=== PATIENT | female | born 1975 ===

== ENCOUNTER 2020-10-30 17:20 | Emergency (ER) | payer BC ==
--- NOTE | 2020-10-30 17:32 | EDM.PDOC ---
<WallaceKezia V - Last Filed: 10/30/20 21:02> ED HPI GENERAL MEDICAL PROBLEM - General Chief Complaint: Cardiovascular Problem Stated Complaint: BLOOD PRESSURE ISSUE Time Seen by Provider: 10/30/20 17:34 - Related Data Allergies Allergy/AdvReac Type Severity Reaction Status Date / Time No Known Allergies Allergy Verified 10/30/20 17:31 Home Meds: Home Meds Terazosin [Hytrin] 2 mg PO DAILY #30 cap 10/30/20 [Rx] Course - Re-Assessments/Exams Free Text/Narrative Re-Assessment/Exam: 10/30/20 21:02 Patient's blood pressure has been steadily under 160 systolically for a few cycles at this time we will go ahead and discharge her home with the above plan from Dr. Roth. Departure - Departure Time of Disposition: 21:02 Disposition: Home, Self-Care 01 Clinical Impression: Uncontrolled hypertension, stage 1 Prescriptions: Terazosin [Hytrin] 2 mg PO DAILY #30 cap Instructions: Hypertension, Adult, [id number], Managing Your Hypertension Referrals: Nat Borja PA-C [Primary Care Provider] - Forms: ED Department Discharge Additional Instructions: You were evaluated today for your elevated blood pressure readings. We were able to get your blood pressure down in the ER, to under 160 systolically. You will be started on 3 different oral blood pressure medications, amlodipine, Terazosin, and losartan, these all work on different pathways to help control your blood pressure, please take as directed unless told otherwise by your [place] care provider. Recommend you take your blood pressure 2 times a day, preferably when you are in a calm state, for roughly 5 minutes and record these numbers in a journal, to talk them over with Nat Borja, to see if she needs to do any sort of adjustments in your medications. Please return to the ER at any time if your symptoms change or worsen. <Dave Roth - Last Filed: 11/02/20 07:12> ED HPI GENERAL MEDICAL PROBLEM - General Source of Information: Reports: Patient, Provider History Limitations: Reports: No Limitations - History of Present Illness INITIAL COMMENTS - FREE TEXT/NARRATIVE: 44-year-old female of -[place] descent presents to the ED at the request of her primary care provider Nat Borja whom she is seen in the office this afternoon. Patient was diagnosed with significant hypertension with a systolic well over 210 and a diastolic over 110. ECG done by provider revealed evidence of significant left ventricular hypertrophy pattern suggesting this is a chronic problem. She was sent to the ED for evaluation of blood pressure and to achieve blood pressure control. Her provider has started her on losartan 100 mg daily and amlodipine 10 mg once daily which the patient will get later today. Labs were drawn as well. They are not yet available to me. Chest x-ray was not yet done. Blood pressure at the time of evaluation in the emergency room was 233/123 with a heart rate of 72.. There is ST segment elevation in lead V5 on the monitor and ECG will therefore be repeated. The ecg I had read for Nat Borja earlier revealed evidence of severe left ventricular perjury pattern with early repolarization pattern in V1 to V4. There is associated left atrial hypertrophy. EEG will be repeated. Patient symptom is that of a diffuse occipital throbbing pulsating headache. Feels like her eyes are little bloodshot as well. Intermittent mild nausea with no vomiting. Onset: Gradual, Unknown/Unsure (He is known that she has had high blood pressure for several years but has not been followed up by physicians very regularly.) Duration: Chronic, Getting Worse Location: Reports: Other (Today primarily is affected with the pressure in the occipital aspect of her head.) Quality: Reports: Ache, Throbbing, Other Severity: Moderate (Pulsating headache.) Improves with: Reports: None Worsens with: Reports: None Context: Denies: Activity, Exercise, Lifting, Sick Contact, Other Associated Symptoms: Reports: Chest Pain, Headaches. Denies: No Other Symptoms (Does have some mild retrosternal chest pressure discomfort.), Confusion, Cough, cough w sputum, Diaphoresis, Fever/Chills, Loss of Appetite, Malaise, Nausea/Vomiting, Rash, Seizure, Shortness of Breath, Syncope, Weakness, Other Chest Pain Score (Numeric/FACES): 5 Past Medical History Cardiovascular History: Reports: Hypertension Social & Family History - Living Situation & Occupation Living situation: Reports: Single Occupation: Employed Social History Comment: [facility] ED ROS GENERAL - Review of Systems Review Of Systems: See Below Constitutional: Reports: Fatigue, Decreased Appetite, Weight Gain (She stop smoking a little over a year ago. She believes she is gained about 20 pounds). Denies: Fever, Chills, Weight Loss HEENT: Reports: Glasses (Tickly noted today. Reading.) Respiratory: Reports: Shortness of Breath (None). Denies: Wheezing, Pleuritic Chest Pain ( exertion at times.), Cough, Sputum Cardiovascular: Reports: Chest Pain, Blood Pressure Problem (Mild central chest discomfort intermittent today.), Dyspnea on Exertion. Denies: Claudication, Edema, Lightheadedness, Orthopnea ( Known hypertension for at least 5 years.), Palpitations Endocrine: Reports: Fatigue (On occasion.) GI/Abdominal: Reports: No Symptoms : Reports: No Symptoms Musculoskeletal: Reports: Neck Pain, Back Pain, Joint Pain (No problems with neck pain low back pain knees and hips at times.) Skin: Reports: No Symptoms Neurological: Reports: Headache. Denies: Numbness, Pre-Existing Deficit, Seizure, Syncope, Tingling (Been on occipital headaches.), Tremors, Trouble Speaking, Difficulty Walking, Weakness, Change in Speech, Gait Disturbance Psychiatric: Reports: No Symptoms Hematologic/Lymphatic: Reports: No Symptoms Immunologic: Reports: No Symptoms ED EXAM, GENERAL - Physical Exam Exam: See Below Exam Limited By: No Limitations General Appearance: Alert, WD/WN, No Apparent Distress, Other (Temperature is 36.2 degrees. Heart rate was 80 and sinus respiratory is 18 BP elevated at 233/123. O2 sats 99% room air) Eye Exam: Bilateral Eye: A-V [place] (Noted bilaterally), Normal Inspection, PERRL (No scleral icterus or blepharal pallor) Throat/Mouth: Normal Inspection, Normal Lips, Normal Teeth, Normal Oropharynx Head: Atraumatic, Normocephalic Neck: Normal Inspection, Supple, Non-Tender, Full Range of Motion. No: Lymphadenopathy (L), Lymphadenopathy (R) Respiratory/Chest: No Respiratory Distress, Lungs Clear, Normal Breath Sounds, No Accessory Muscle Use Cardiovascular: Normal Peripheral Pulses, Regular Rate, Rhythm, No Edema, No Gallop, No Murmur, No Rub Peripheral Pulses: 2+: Carotid (L), Carotid (R), Posterior Tibial (L), Posterior Tibial (R), Dorsalis Pedis (L), Dorsalis Pedis (R) GI/Abdominal: Normal Bowel Sounds, Soft, Non-Tender, No Organomegaly, No Mass, Pelvis Stable, Other (Naseem obese.) Back Exam: Normal Inspection, Full Range of Motion. No: CVA Tenderness (L), CVA Tenderness (R) Extremities: Normal Inspection, Normal Range of Motion, Non-Tender, No Pedal Edema Neurological: Alert, Oriented, CN II-XII Intact, Normal Cognition Psychiatric: Normal Affect, Normal Mood Skin Exam: Warm, Dry, Intact, Normal Color, No Rash #1 Interpretation EKG Date: 10/30/20 Time: 17:43 Rhythm: NSR Rate (Beats/Min): 73 [place]: Normal P-Wave: Enlarged (Left atrial hypertrophy pattern) QRS: Other (Severe evidence of left bundle branch block pattern.) ST-T: Other (Diffuse early repolarization pattern particular noted V1 to V6. T wave is slightly inverted in aVL nonspecific finding) EKG Interpretation Comments: Abnormal ECG Course - Vital Signs Last Recorded V/S: Last Vital Signs Temp 36.2 C 10/30/20 17:28 Pulse 80 10/30/20 17:28 Resp 18 10/30/20 17:28 BP 158/87 H 10/30/20 21:15 Pulse Ox 99 10/30/20 17:28 - Orders/Labs/Meds Labs: Laboratory Tests 10/30/20 10/30/20 10/30/20 Range/Units 17:10 17:10 19:10 Magnesium 2.2 (1.8-2.4) mg/dl NT-Pro-B Natriuret Pep 98 (0-125) pg/mL Urine Color Yellow (Yellow) Urine Appearance Clear (Clear) Urine pH 6.5 (5.0-8.0) Ur Specific [place] 1.020 (1.005-1.030) Urine Protein Negative (Negative) Urine Glucose (UA) Negative (Negative) Urine Ketones Negative (Negative) Urine Occult Blood Negative (Negative) Urine Nitrite Negative (Negative) Urine Bilirubin Negative (Negative) Urine Urobilinogen 0.2 (0.2-1.0) Ur Leukocyte Esterase Negative (Negative) Urine RBC 0-5 (0-5) /hpf Urine WBC 0-5 (0-5) /hpf Ur Squamous Epith Cells 0-5 (0-5) /hpf Urine Bacteria Few (FEW) /hpf Urine Mucus Not seen (FEW) /hpf Meds: Medications Discontinued Medications Generic Name Dose Route Start Last Admin Trade Name Freq PRN Reason Stop Dose Admin Amlodipine Besylate 10 mg 10/30/20 17:43 10/30/20 17:55 Norvasc PO 10/30/20 17:44 10 mg ONETIME ONE Administration Enalaprilat 1.25 mg 10/30/20 19:05 10/30/20 19:13 Vasotec Iv IVPUSH 10/30/20 19:06 1.25 mg ONETIME ONE Administration Hydralazine HCl 10 mg 10/30/20 17:43 10/30/20 17:57 Apresoline IVPUSH 10/30/20 17:44 10 mg ONETIME ONE Administration Labetalol HCl 20 mg 10/30/20 18:21 10/30/20 18:46 Normodyne IVPUSH 10/30/20 18:22 20 mg ONETIME ONE Administration Protocol Labetalol HCl 40 mg 10/30/20 19:22 10/30/20 19:49 Normodyne IVPUSH 10/30/20 19:23 40 mg ONETIME ONE Administration Protocol Terazosin HCl 2 mg 10/30/20 19:26 10/30/20 19:45 Hytrin PO 10/30/20 19:27 2 mg ONETIME ONE Administration - Radiology Interpretation Free Text/Narrative:: 44-year-old female presents to the ED at the request of her primary care provider because of uncontrolled hypertension in the clinic. Systolics have been greater than 220 and diastolics have been greater than 114. Upon arrival in the ED here blood pressure is 223/113. Labs have been drawn and I added a few more to her treatment plan. Chest x-ray will be done as well. She is compl aining of some mild chest heaviness. A troponin was ordered by her primary care provider but is pending. ECG does not show me any signs of acute ischemia. It does show significant left ventricular hypertrophy with strain pattern. Patient will have a saline lock started. She will be given hydralazine 10 mg IV and amlodipine 10 mg p.o. Depending on how her renal function is I will likely proceed with enalapril 1.25 mg IV as well for blood pressure control. - Re-Assessments/Exams Free Text/Narrative Re-Assessment/Exam: 10/30/20 18:21 blood pressures not improved 20 minutes after receiving hydralazine 10 mg IV. It is down to 230/112 when he started at 223 223. I am therefore going to also add labetalol 20 mg IV push at this time. I am awaiting renal function so that I can use enalapril as well. 10/30/20 18:40 Labs done by primary care practitioner now available to me. Total white count was 6.86 with auto differential showing 39% neutrophils and 53% lymphocytes suggesting a viral infection or right shift. Hemoglobin is 14.5 with hematocrit of 45.2. Platelet count is normal at 249,000. Chemistry reveals a sodium of 141 potassium of 3.8. Chloride 104 the bicarb of 27. Anion gap is 13.8. Random glucose is 96 BUN is 15 with a creatinine of 1.1 and a GFR greater than 60. Total protein is 8.3 calcium is 9.4 albumin fraction is 4.3. Liver function is completely normal troponin I was 0.052 TSH 0.560 which is normal. Free T4 was 1.33. 10/30/20 19:06 Blood pressure really showed no response to 10 mg of hydralazine IV at all. Labetalol 20 mg IV is slowly starting to drop her pressure is currently 196 104. Since her renal function is normal I am also going to add enalapril or Vasotec 1.25 mg IV at this time. Care will be transferred to Dr. Menendez as it is change of shift. Once her blood pressure is felt to be satisfactorily controlled she will be discharged on medications prescribed by Nat Borja her primary care provider. Amlodipine 10 mg at bedtime and losartan 100 mg in the morning. Apparently follow-up has been arranged with Nat Borja in the near future. Level came back at 2.2 and her BNP is 94. 10/30/20 19:21 blood pressure has been difficult to control. Currently it is 199/108 and this is after hydralazine 10 mg IV an hour ago. Labetalol 20 mg IV push 1/2-hour ago. She is just receiving enalapril 1.25 mg IV now. I am also going to give her another dose of labetalol 40 mg IV push. 10/30/20 19:26 I believe that she is going to need at least 3 different antihypertensive agents to bring this blood pressure under control. I agree with amlodipine 10 mg at at bedtime and losartan 100 mg in the morning. I am going to also add a alpha-viki Hytrin 2 mg once daily in the morning until she is reviewed by primary care provider Nat Borja. Departure - Departure Condition: Fair
[2020-10-30] MEDS ORDERED: amLODIPine 10 MG Tab PO ONE (17:43)
[2020-10-30] MEDS ORDERED: hydrALAZINE 20 MG/ML SDV IVPUSH ONE (17:43)
[2020-10-30] MEDS ORDERED: Labetalol 100 MG/20 ML MDV IVPUSH ONE ×2 (18:21→19:22)
[2020-10-30] MEDS ORDERED: Enalaprilat 1.25 MG/ML SDV IVPUSH ONE (19:05)
--- NOTE | 2020-10-31 09:01 | CR ---
Chest: Portable view of the chest was obtained. Comparison: No prior chest imaging is available. Heart size is slightly prominent but most likely within normal limits for portable technique. Upper mediastinum is normal. Lungs are clear with no acute parenchymal change. No acute osseous abnormality is appreciated. Impression: 1. Nothing acute is appreciated on portable chest x-ray. Diagnostic code #2
== END 2020-10-30 21:44 | disposition home or self-care (01) ==
LOC: JD.ED 17:20
DX: I10 Essential (primary) hypertension (principal); I44.7 Left bundle-branch block, unspecified
CPT/HCPCS: 36415; 71045; 71045-26; 81001; 83735; 83880; 93005; 93010; 96374; 96375; 96376; 99284; 99284-25; A9270-GY; J0360; J3490